=== PATIENT | female | born 1965 | race Caucasian/White ===

== ENCOUNTER 2020-12-12 07:59 | Outpatient (REF) | payer OTHER, SELFPAY ==
--- NOTE | 2020-12-12 08:06 | CT_ITS ---
EXAMINATION: CT SINUS WITHOUT CONTRAST CLINICAL INFORMATION: Sinonasal polyps and deviated nasal septum COMPARISON: None TECHNIQUE: 2 mm thin axial and reformatted 2 mm thin sagittal and coronal images of sinuses were obtained. This CT examination was performed using dose optimization techniques as appropriate, variously including the following: *Automated exposure control *Adjustment of mA and/or kV according to patient size (this includes techniques or standardized protocols for targeted exams where dose is matched to indication/reason for exam; i.e. extremities or head) *Use of iterative reconstruction technique DLP: 103 mGy-cm FINDINGS: There is normal aeration of bilateral paranasal sinuses without mucoperiosteal thickening or air-fluid levels. The bony sinus ngo, lamina papyracea and cribriform plate appear normal. Bilateral ostiomeatal complex and frontoethmoidal recesses drainage pathways are widely patent. The bony orbits, optic globe and the intraorbital soft tissues including optic nodes are symmetric and normal. NASAL CAVITY/NASOPHARYNX: There is normal symmetry of the inferior and middle turbinates. The nasal septum appears mildly deviated to the right. The nasopharyngeal and nasal cavity airway is widely patent. No mucoperiosteal thickening, polyps, or mass seen within the nasal cavity or the nasopharynx. ADDITIONAL RELEVANT FINDINGS: No periapical disease is seen. 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 The left TM joint appears unremarkable. Visualized craniovertebral junction and the C1-C2 alignment is normal. The mastoid sinuses are symmetrical and normal. The external auditory canal and internal auditory canal are symmetrical and normal. There is no acute intracranial abnormality seen on the visualized images. CT/CT sinus wo con IMPRESSION: 1. No evidence of sinonasal polyps or mucoperiosteal thickening involving the sinuses at this time. 2. The nasal cavity and nasopharyngeal airway is widely patent.
== END 2020-12-12 08:00 | disposition home or self-care (01) ==
LOC: HO.CT 07:59
PROVIDERS: PCP Family Medicine; Visit Provider Otolaryngology
DX: J33.9 Nasal polyp, unspecified (principal); J34.2 Deviated nasal septum
CPT/HCPCS: 70486